=== PATIENT | female | born 1965 | race Hispanic/Latino ===

== ENCOUNTER 2023-11-04 01:00 | Emergency (ER) | payer OTHER, SELFPAY ==
[2023-11-04 01:06] VITALS: BP 139/68; BMI 26.8
--- NOTE | 2023-11-04 01:13 | ED.GENMED ---
History of Present Illness
<Clifford Vicente DO - Last Filed: 11/04/23 02:07>
General
Chief Complaint: Chest Pain
Source: patient, spouse, family and ambulance crew
Exam Limitations: none
Time Seen by Provider: 11/04/23 01:13
Nursing documentation reviewed up to this point in time: agreed with
History of Present Illness
History of Present Illness:
58-year-old female presents emergency department due to mid chest pain that began at 1 AM. It woke her from sleep. She took 324 mg aspirin from EMS. Pain is dissipating.
Past History
<Clifford Vicenet DO - Last Filed: 11/04/23 02:07>
Past History
ED Past Medical History: NIDDM
ED Past Surgical History:
Social History
Tobacco: Non-smoker
Alcohol: None
Drug: None
Personal:
Living: with family
Review of Systems
<Clifford Vicente, DO - Last Filed: 11/04/23 02:07>
Review of Systems
Allergies reviewed?: Yes
All Other Systems: Not applicable
Constitutional: Reports no symptoms
EENT: Reports no symptoms
Respiratory: Reports no symptoms
Cardiac: Reports chest pain
ABD/GI: Reports no symptoms
: Reports no symptoms
Musculoskeletal: Reports no symptoms
Skin: Reports no symptoms
Neurological: Reports no symptoms
Endocrine: Reports no symptoms
Hematologic/Lymphatic: Reports no symptoms
Psychiatric: Reports no symptoms
Phy Exam
<Clifford Vicente DO - Last Filed: 11/04/23 02:07>
Physical Exam
Physical Exam:
Physical Exam
General: no apparent distress, not acutely ill
Neck: supple. no meningeal signs. normal posterior pharynx
Heart: s1/s2 regular rate and rhythm, no murmur. equal radial
pulses.
HEENT: Pupils equal round reactive to light, EOMI
Lungs: no acute respiratory distress. clear bilaterally
Abdomen: normal bowel sounds. not tender. no CVAT
Neuro: alert and oriented. no focal neurological deficits cranial nerves II through XII intact
Skin: no rash
Psychiatric: well kept. interactive and cooperative
Extremities: no edema. no calf tenderness. negative homans. good distal pulses
Scores
<Britney Horton, DO - Last Filed: 11/04/23 05:09>
Heart Score for Chest Pain Patients
STEMI patient?: No
History: Slightly or Non-Suspicious
ECG: Normal
Age: >45 - <65 years
Risk Factors: 1 or 2 Risk Factors
Troponin: </= Normal Limit
Heart Score for Chest Pain Patients: 2
Heart Score Risk: 2.5% MACE over next 6 weeks
Course
<Clifford Vicente, DO - Last Filed: 11/04/23 02:07>
Orders/Labs/Results
Orders:
Orders
11/04/23 01:03
EKG [Electrocardiogram (*1)] Urgent
Reason for Study: Chest Pain
11/04/23 01:04
EKG- Treatment ONCE
11/04/23 01:08
Complete Blood Count/No Diff Urgent
Comprehensive Metabolic Panel Urgent
Troponin I Urgent
11/04/23 01:51
EKG [Electrocardiogram (*1)] Urgent
Reason for Study: Chest Pain
EKG- Treatment ONCE
11/04/23 02:21
COVID-19 Antigen Urgent
Source: Nasal Swab
Influenza A+B Rapid Molecular Urgent
IVANIA Source: Nasal Swab
Specimen Description:
11/04/23 04:02
Troponin I Urgent
Abnormal Lab Results
11/04/23 11/04/23
01:08 02:21
Hct 36.8 L %
(37.0-47.0)
MCH 31.1 H pg
(27.0-31.0)
MPV 11.3 H fL
(7.4-10.4)
BUN 23 H mg/dl
(7-17)
Glucose 125 H mg/dl
(70-99)
AST 52 H U/L
(14-36)
ALT 39 H U/L
(0-35)
SARS-CoV-2 Antigen Positive A
(Negative)
11/04/23 01:08
11/04/23 01:08
Vital Signs
Initial and Last Documented VS:
Initial Vital Signs
Temp Pulse BP Pulse Ox
98.6 F 86 139/68 98
11/04/23 01:06 11/04/23 01:06 11/04/23 01:06 11/04/23 01:06
Last Documented Vital Signs
Temp Pulse Resp BP Pulse Ox
98.6 F 76 20 114/61 98
11/04/23 01:06 11/04/23 04:30 11/04/23 04:30 11/04/23 04:02 11/04/23 04:30
<Britney Horton, DO - Last Filed: 11/04/23 05:09>
Orders/Labs/Results
Orders:
Orders
11/04/23 01:03
EKG [Electrocardiogram (*1)] Urgent
Reason for Study: Chest Pain
11/04/23 01:04
EKG- Treatment ONCE
11/04/23 01:08
Complete Blood Count/No Diff Urgent
Comprehensive Metabolic Panel Urgent
Troponin I Urgent
11/04/23 01:51
EKG [Electrocardiogram (*1)] Urgent
Reason for Study: Chest Pain
EKG- Treatment ONCE
11/04/23 02:21
COVID-19 Antigen Urgent
Source: Nasal Swab
Influenza A+B Rapid Molecular Urgent
IVANIA Source: Nasal Swab
Specimen Description:
11/04/23 04:02
Troponin I Urgent
Abnormal Lab Results
11/04/23 11/04/23
01:08 02:21
Hct 36.8 L %
(37.0-47.0)
MCH 31.1 H pg
(27.0-31.0)
MPV 11.3 H fL
(7.4-10.4)
BUN 23 H mg/dl
(7-17)
Glucose 125 H mg/dl
(70-99)
AST 52 H U/L
(14-36)
ALT 39 H U/L
(0-35)
SARS-CoV-2 Antigen Positive A
(Negative)
11/04/23 01:08
11/04/23 01:08
Vital Signs
Initial and Last Documented VS:
Initial Vital Signs
Temp Pulse BP Pulse Ox
98.6 F 86 139/68 98
11/04/23 01:06 11/04/23 01:06 11/04/23 01:06 11/04/23 01:06
Last Documented Vital Signs
Temp Pulse Resp BP Pulse Ox
98.6 F 76 20 114/61 98
11/04/23 01:06 11/04/23 04:30 11/04/23 04:30 11/04/23 04:02 11/04/23 04:30
<Clifford Vicente, DO - Last Filed: 11/04/23 02:07>
MDM/Problems Addressed
Differential Diagnosis Includes:
ACS, palpitations
MDM/Problems Addressed:
58-year-old female with chest pain, unclear etiology. Do not suspect PE. Initial troponin negative. Will repeat troponin at 415. If negative, will have patient follow-up with cardiology.
Chronic conditions affecting care: DM
Acute Exacerbation and/or Progression of Chronic Illness: DM
<Clifford Vicente, DO - Last Filed: 11/04/23 02:07>
*Pulse Oximetry
Patient hypoxic: no
*EKG
Interpreted by ED Provider?: Yes
EKG Intrepretation Date: 11/04/23
EKG Intrepretation Time: 01:07
Interpretation: normal
Comparison EKG: no changes
Heart Rate: 81
Rate: normal
Rhythm: sinus
[place]: normal axis
Interval: normal interval
QRS Pattern: normal QRS
Ischemia: no ischemia
*[employer] Interpretation
Rate: normal
Interpretation: normal
Heart Rate: 87
Rhythm: sinus
<Britney Horton, DO - Last Filed: 11/04/23 05:09>
*Critical Care Note
Total Time (30-74mins, 75-104mins- exclusive of procedures): Not Applicable
<Clifford Vicente, DO - Last Filed: 11/04/23 02:07>
Patient Management
Social determinants of health affecting care: Living situation
<Britney Horton, DO - Last Filed: 11/04/23 05:09>
Update Note
Update Note:
11/04/2023 0504 AM
Patient remains comfortable, resting comfortably.
COVID and influenza testing performed as per family request. Patient is COVID antigen positive. Influenza is negative. She remains afebrile.
Initial troponin less than 0.012. Repeat troponin 0.016. Minimal but nonsignificant increase. I suspect related to acute COVID infection.
She has had no tachycardia, no shortness of breath, no recurrent chest pain.
I suspect her symptoms tonight are COVID-19 related and recommend supportive measures, staying well-hydrated, rest, Tylenol versus ibuprofen for discomfort, fever.
Patient has been referred to chest pain hotline for follow-up and recommend follow-up with PCP as well.
Return precautions discussed.
ED Attending Note
<Clifford Vicente, DO - Last Filed: 11/04/23 02:07>
-
Portions of this chart may have been created with voice recognition software.� Occasional wrong word or��sound alike� substitutions may have occurred due to the inherent limitations of voice recognition software.
Discharge Plan
Departure
Patient with high blood pressure during this ER visit?: Yes
Condition: Good
Discharge Problem:
Chest pain, COVID-19
Instructions: COVID-19 in adults - Discharge instructions, Chest Pain CBC Follow Up, BLOOD PRESSURE
Prescriptions:
Discontinued
oxycodone-acetaminophen 1 EACH tablet
1 ea PO
hydrocodone-acetaminophen 5 MG/500 MG tablet
1 tab PO Q4HPRN PRN (Reason: PAIN) Qty: 20 0RF
amoxicillin-pot clavulanate 875 MG/125 MG tablet
1 tab PO Q12 Qty: 20 0RF
Interventions
Interventions:
*Risk Screen - Suicide Last Done: 11/04/23 01:06
*General Assessment Last Done: 11/04/23 01:06
*Neglect/Abuse Screening Last Done: 11/04/23 01:06
ED- Cardiac Assessment Last Done: 11/04/23 03:21
Discharge Date and Time
Print Language: LIBERIAN
[2023-11-04 01:18] LABS: Hematocrit 36.8 % (37.0-47.0); Hemoglobin 13.1 g/dL (12.0-16.0); Mean Corp Hgb Conc. 35.6 g/dL (33.0-37.0); Mean Corpuscular Hgb 31.1 pg (27.0-31.0); Mean Corpuscular Volume 87.4 fL (81.0-99.0); Mean Platelet Volume 11.3 fL (7.4-10.4); Platelet Count 166 10^3/uL (130-400); Red Blood Cell Count 4.21 10^6/uL (4.20-5.40); Red Cell Dist. Width 11.9 % (11.5-14.5)
[2023-11-04 01:34] LABS: ALT (SGPT) 39 U/L (0-35); AST (SGOT) 52 U/L (14-36); Albumin 4.3 g/dl (3.5-5.0); Alkaline Phosphatase 67 U/L (38-126); Blood Urea Nitrogen 23 mg/dl (7-17); Calcium 9.1 mg/dl (8.4-10.2); Carbon Dioxide 25 mmol/L (22-30); Chloride 105 mmol/L (98-107); Estimated Creatinine Clearance 92 ml/min; Glucose 125 mg/dl (70-99); Potassium 3.7 mmol/L (3.5-5.1); Sodium 137 mmol/L (135-145); Total Bilirubin 0.7 mg/dl (0.2-1.3); Total Protein 6.8 g/dl (6.3-8.2); eGFR > 60.00
[2023-11-04 01:46] LABS: Troponin I < 0.012 ng/ml
[2023-11-04 02:00] VITALS: BP 119/64
[2023-11-04 02:46] LABS: COVID-19 Antigen Positive (Negative)
[2023-11-04 03:00] VITALS: BP 118/61
[2023-11-04 04:02] VITALS: BP 114/61
[2023-11-04 04:35] LABS: Troponin I 0.016 ng/ml
[2023-11-04 05:00] VITALS: BP 128/62
== END 2023-11-04 05:27 | disposition home or self-care (01) ==
LOC: EMR 01:00
PROVIDERS: EMERGENCY PHYSICIAN Emergency Medicine; FAMILY PHYSICIAN Nurse Practitioner Adult Health
DX: U07.1 COVID-19 (principal); R07.89 Other chest pain; Z11.52 Encounter for screening for COVID-19; R03.0 Elevated blood-pressure reading, without diagnosis of hypertension; E11.9 Type 2 diabetes mellitus without complications
CPT/HCPCS: 99284; 80053; 84484; 85027; 87502; 87811; 93005